=== PATIENT | male | born 1940 | race Caucasian/White ===

== ENCOUNTER 2023-06-30 16:37 | Inpatient (IN) | payer MEDICARE ==
[2023-06-30] VITALS (7 sets, daily range): BP systolic 125–155; BP diastolic 49–55; PULSE 77–80; TEMP 99.4–99.5
[~2023-06-30] VITALS: Ht 170.2 cm; Wt 60.0 kg
[2023-06-30 18:33] LABS: BASO % 0.6 % (0.0-2.0); EOS # 0.2 K/mm3 (0.0-0.7); GRAN % 59.3 % (42.2-75.2); LYMPH # 1.4 K/mm3 (1.2-3.4); LYMPH % 28.7 % (20.0-51.0); MEAN CELL VOLUME 91 fl (80.0-100.0); MEAN CORPUSCULAR HGB CONC 31 g/dl (33.0-37.0); MEAN PLATELET VOLUME 11.9 fl (7.4-10.4); MONO # 0.4 K/mm3 (0.1-0.6); MONO % 8.2 % (1.7-9.3); PLATELET COUNT 164 K/mm3 (130-400); RED BLOOD COUNT 2.22 M/mm3 (4.20-5.60); REDCELL DISTRIBUTION WIDTH-CV 14.1 % (11.5-14.5)
[2023-06-30 18:34] LABS: HEMATOCRIT 20.2 % (42.0-52.0); HEMOGLOBIN 6.2 g/dl (13.5-18.0); MEAN CORPUSCULAR HEMOGLOBIN 28 pg (27-31)
[2023-06-30 18:43] LABS: ALBUMIN 2.9 g/dL (3.4-4.8); BILIRUBIN,TOTAL 0.3 mg/dL (0.2-1.2); CALCIUM 8.7 mg/dL (8.4-10.2); CREATININE, serum 1.26 mg/dL (0.72-1.25); POTASSIUM 3.7 mEq/L (3.5-4.5); TOTAL PROTEIN 6.2 g/dl (6.2-8.1)
[2023-06-30] MEDS ORDERED: Ondansetron 4 MG/2 ML VIAL IV PRN (19:45)
[2023-06-30] MEDS ORDERED: Acetaminophen 325 MG TAB PO PRN (19:45)
[2023-06-30] MEDS ORDERED: Morphine 4 MG/ML VIAL IV ONE (20:00)
[2023-06-30] MEDS ORDERED: LORazepam 1 MG TAB PO PRN (20:00)
[2023-06-30] MEDS ORDERED: ATIVAN 1MG T1 MG/TAB PO (20:08)
[2023-06-30] MEDS ORDERED: ZOCOR 20MG20 MG PO (20:09)
[2023-06-30] MEDS ORDERED: PROTONIX 40MG T40 MG PO (20:09)
[2023-06-30] MEDS ORDERED: PLAVIX 75MG TAB75 MG PO (20:10)
[2023-06-30] MEDS ORDERED: LOPRESSOR 225 MG/TAB PO (20:11)
--- NOTE | 2023-06-30 20:30 | NUR ---
PATIENT ADMITTED TO ROOM 306 FROM ED. VITAL SIGNS ARE 130/49 BP, 78 PULSE, 96% RA, 99.5 TEMP. MED REC IS INCOMPLETE PATIENT RELIES ON FOR MEDICATION ADMINISTERATION. TO RETURN IN THE MORNING. WILL ADVISE DAYSHIFT. ORIENTED TO ROOM, CALL LIGHT WITHIN REACH. PRBC TRANFUSION ORDERS IN PLACE.
[2023-06-30] MEDS ORDERED: Iohexol 300 - 100 ML VIAL IV ONE (20:44)
[2023-06-30] MEDS ORDERED: NS 100 ML IV SCH (20:44)
[2023-06-30] MEDS ORDERED: Pantoprazole 40 MG in NS 10 ML IV SCH (21:00)
[2023-06-30 23:00] LABS: PH 5.5 (5.0-8.5); URINE APPEARANCE Clear (CLEAR/HAZY); URINE BLOOD 1+ (NEGATIVE); URINE COLOR YELLOW (YELLOW); URINE GLUCOSE NEGATIVE (NEGATIVE); URINE KETONE NEGATIVE (NEGATIVE); URINE NITRATE NEGATIVE (NEGATIVE); URINE PROTEIN(semi-quant) NEGATIVE (NEGATIVE); URINE UROBILINOGEN 0.2 E.U/dL (0.2-1.0)
[2023-06-30 23:07] LABS: COLLECTION METHOD CLEAN CATCH
[2023-07-01] VITALS (22 sets, daily range): BP systolic 135–161; BP diastolic 59–75; PULSE 56–101; TEMP 97.7–99.5
--- NOTE | 2023-07-01 04:10 | NUR ---
PATIENT TOLERATED TRANSFUSION OF 2UNITS PRBC WELL. STATES, "I AM FEELING MUCH BETTER.". STATES NO NEEDS AT THIS TIME. CALL LIGHT WITHIN REACH.
[2023-07-01 06:37] LABS: MEAN CELL VOLUME 87 fl (80.0-100.0); MEAN CORPUSCULAR HGB CONC 33 g/dl (33.0-37.0); MEAN PLATELET VOLUME 11.9 fl (7.4-10.4); PLATELET COUNT 139 K/mm3 (130-400); RED BLOOD COUNT 2.73 M/mm3 (4.20-5.60)
[2023-07-01 06:39] LABS: HEMATOCRIT 23.8 % (42.0-52.0); HEMOGLOBIN 7.9 g/dl (13.5-18.0); MEAN CORPUSCULAR HEMOGLOBIN 29 pg (27-31)
[2023-07-01 06:59] LABS: CALCIUM 8.3 mg/dL (8.4-10.2); CREATININE, serum 1.15 mg/dL (0.72-1.25); MAGNESIUM 1.8 mg/dL (1.6-2.6); POTASSIUM 3.8 mEq/L (3.5-4.5)
--- NOTE | 2023-07-01 07:30 | NUR ---
Pt doing well this morning during bedside shift report. Reports he feels much better than when he came in. I did assist pt with ordering his breakfast. No complaints of pain at this time. Gave him fresh ice water, no other needs or complaints. Call light within reach
--- NOTE | 2023-07-01 10:31 | NUR ---
pt continues to do well. He has been up walking with therapy. Reports he overall feels better, but is still a little dizzy when he gets up. Ate all of his breakfast with no complaints, no complaints of pain. at bedside, will continue to monitor
--- NOTE | 2023-07-01 10:59 | NUR ---
D: Initial visit: [employer]ant stopped by room on rounds. A: Pt was resting and content with his by his side. Pt has no needs right now. Both apprecaited the visit. P: It [employer] Consultant informed pt that if he needed anything from the home housekeeper area to let his nurse know. [employer]ant will follow up as needed.
--- NOTE | 2023-07-01 13:44 | NUR ---
floor worker met with pt and his , Corrina [phone] to discuss discharge planning. Pt reports he lives with his in [place]. He sees Dr. Stallings for PCP needs and obtains medications from [facility] with no difficulties. He reports to be independent with ADLS and uses no DME. He does not have a DPOA-HC and declines one. SW notes patient has been independent in room per notes. Discharge Plan: home
--- NOTE | 2023-07-01 13:45 | NUR ---
Pt laying in bed. at bedside. Pt is A&Ox4. VSS. S1S2, on tele. Clear lung sounds. ABD is rounded, firm, non-tender with audible bowel sounds. Pt is scheduled for a paracentesis later today for ascites. Palpable pulses and normal strength in all extremities. Call light in reach. No further needs at this time.
--- NOTE | 2023-07-01 15:00 | NUR ---
Received report from Mayela Olivarez RN. Pt laying in bed. No further needs at this time. Call light in reach.
[2023-07-01 15:36] LABS: INR 1.1 (0.8-3.0)
--- NOTE | 2023-07-01 20:30 | NUR ---
UPON SHIFT ASSESSMENT, SHANIQUA WAS IN BED EATING DINNER TRAY, HE IS AXO X4 AND CHEERFUL. HE C/O OF 4/10 ABDOMINAL PAIN. BOWEL SOUNDS PRESENT IN ALL QUADRANTS. VS ARE WNL AND TELE IS NS. HBG IMPROVRD FROM 6.2-7.9. PARACENTISIS SCHEDULED FOR TODAY NEVER OCCURED, TRIED TO CALL ULTRASOUND-NO ANSWER-STAFF GONE FOR DAY. WILL CONTACT OR PASS ON TO DAY SHIFT NEED FOR ALERTING ULTRASOUND OF ORDERED PROCEDURE. CALL LIGHT WITHIN REACH.
[2023-07-02] VITALS (7 sets, daily range): BP systolic 111–150; BP diastolic 60–76; PULSE 81–97; TEMP 97.5–98.4
--- NOTE | 2023-07-02 07:42 | NUR ---
sitting up in bed eating breakfast, bedside shift report received from Mony RN, radiology here to take patient for paracentesis
--- NOTE | 2023-07-02 09:00 | NUR ---
is back in his room from paracentesis, has bandaid to lower left side where he states the paracentesis was completed, the bandaid is CD&I and he denies any pain, full assessment completed, see interventions for further info, denies pain or needs at this time
[2023-07-02] MEDS ORDERED: Metoprolol Tartrate 25 MG TAB PO SCH (09:22)
--- NOTE | 2023-07-02 09:55 | NUR ---
in bed and appears to be sleeping, eyes closed, resp quiet and easy
[2023-07-02] MEDS ORDERED: Simvastatin 20 MG **** subs to Atorvastatin 10 MG PO SCH (10:00)
[2023-07-02 10:19] LABS: PERITONEAL -POLYMORPHONUCLEAR 2.5 % (0-25)
--- NOTE | 2023-07-02 10:42 | NUR ---
continues to appear to sleep
--- NOTE | 2023-07-02 11:15 | NUR ---
resting in bed, informed him he needs to be NPO, nothing to eat or drink, until after a CT scan of abdomen, verbalizes understanding
[2023-07-02 11:17] LABS: MEAN CELL VOLUME 90 fl (80.0-100.0); MEAN CORPUSCULAR HGB CONC 32 g/dl (33.0-37.0); PLATELET COUNT 144 K/mm3 (130-400); RED BLOOD COUNT 2.67 M/mm3 (4.20-5.60); REDCELL DISTRIBUTION WIDTH-CV 14.1 % (11.5-14.5)
[2023-07-02 11:21] LABS: HEMOGLOBIN 7.7 g/dl (13.5-18.0); MEAN CORPUSCULAR HEMOGLOBIN 29 pg (27-31)
[2023-07-02 11:22] LABS: HEMATOCRIT 23.9 % (42.0-52.0)
[2023-07-02 11:30] LABS: CALCIUM 8.4 mg/dL (8.4-10.2); CREATININE, serum 1.26 mg/dL (0.72-1.25); POTASSIUM 3.9 mEq/L (3.5-4.5)
--- NOTE | 2023-07-02 11:33 | NUR ---
notified by radiology staff the CT scan was cancelled, informed patient he could eat and drink,
--- NOTE | 2023-07-02 13:02 | NUR ---
sitting up in bed eating lunch, at bedside, asking about going home
--- NOTE | 2023-07-02 14:30 | NUR ---
informed patient and his we are working on discharge paper work, verbalizes understanding
--- NOTE | 2023-07-02 15:00 | NUR ---
discharge instructions given to patient and his , verbalizes understanding
--- NOTE | 2023-07-02 15:20 | NUR ---
discahrged per WC
[2023-07-02] MEDS ORDERED: Atorvastatin 10 MG TAB PO SCH (21:00)
== END 2023-07-02 15:20 | disposition home or self-care (01) | DRG 378 ==
LOC: COL.ER 16:37 → MEDICAL 19:38
PROVIDERS: Internal Medicine; Internal Medicine Gastroenterology; Nurse Practitioner; Physician Assistant; ADMIT Internal Medicine
PROC: 30233N1 Transfusion of Nonautologous Red Blood Cells into Peripheral Vein, Percutaneous Approach (ICD-10-PCS; 2023-06-30)
PROC: 0W9G3ZZ Drainage of Peritoneal Cavity, Percutaneous Approach (ICD-10-PCS; principal; 2023-07-01)
DX: K92.2 Gastrointestinal hemorrhage, unspecified (principal); R18.8 Other ascites; I10 Essential (primary) hypertension; E78.5 Hyperlipidemia, unspecified; F17.210 Nicotine dependence, cigarettes, uncomplicated; D64.9 Anemia, unspecified; G47.00 Insomnia, unspecified; K44.9 Diaphragmatic hernia without obstruction or gangrene; K29.30 Chronic superficial gastritis without bleeding; K64.1 Second degree hemorrhoids; K52.9 Noninfective gastroenteritis and colitis, unspecified; Z88.6 Allergy status to analgesic agent; Z79.02 Long term (current) use of antithrombotics/antiplatelets; Z88.5 Allergy status to narcotic agent; Z86.73 Personal history of transient ischemic attack (TIA), and cerebral infarction without residual deficits; Z79.899 Other long term (current) drug therapy; Z85.060 Personal history of malignant carcinoid tumor of small intestine; Z23 Encounter for immunization
CPT/HCPCS: C9113; J2270; P9016; Q9967

== ENCOUNTER 2023-07-20 09:39 | Emergency (ER) | payer MEDICARE ==
[~2023-07-20] VITALS: Ht 170.2 cm; Wt 63.6 kg
[~2023-07-20 09:39] MED LIST: ATIVAN 1MG T1 MG/TAB PO; LOPRESSOR 225 MG/TAB PO; PLAVIX 75MG TAB75 MG PO; PROTONIX 40MG T40 MG PO; ZOCOR 20MG20 MG PO
[2023-07-20 11:00] VITALS: TEMP 98.1
[2023-07-20 13:13] VITALS: BP 158/79; PULSE 71
[2023-07-20] MEDS ORDERED: Furosemide 40 MG/4 ML VIAL IV ONE (13:15)
[2023-07-20] MEDS ORDERED: Furosemide 40 MG TAB PO ONE (13:30)
== END 2023-07-20 13:13 | disposition home or self-care (01) ==
LOC: COL.ER 09:39
DX: R18.8 Other ascites (principal)

== ENCOUNTER → 2023-09-30 | Outpatient (CLI) | payer MEDICARE ==
[~2023-09-30] MED LIST changes: +Iohexol 300 - 100 ML VIAL IV ONE; +NS 100 ML IV SCH
== END ==
LOC: COL.RAD 07:19
DX: C7A.021 Malignant carcinoid tumor of the cecum (principal); K86.89 Other specified diseases of pancreas
CPT/HCPCS: Q9967

== ENCOUNTER → 2023-10-10 | Outpatient (CLI) | payer MEDICARE ==
[~2023-10-10] VITALS: Ht 170.2 cm; Wt 56.2 kg
[~2023-10-10] MED LIST changes: +ALDACTONE 25MG25 M1 PO; -Iohexol 300 - 100 ML VIAL IV ONE; -NS 100 ML IV SCH
[2023-10-10 08:26] VITALS: BP 133/68; PULSE 85; TEMP 97.3
[2023-10-10 10:00] VITALS: BP 114/78; PULSE 74
[2023-10-10 12:56] LABS: PERITONEAL -POLYMORPHONUCLEAR 7.9 % (0-25)
== END ==
LOC: COL.RAD 07:51
PROVIDERS: Internal Medicine Gastroenterology
DX: R18.8 Other ascites (principal); R11.2 Nausea with vomiting, unspecified; R10.9 Unspecified abdominal pain; R06.00 Dyspnea, unspecified; R14.0 Abdominal distension (gaseous)

== ENCOUNTER → 2023-12-09 | Outpatient (CLI) | payer MEDICARE ==
[~2023-12-09] VITALS: Ht 170.2 cm; Wt 57.5 kg
[~2023-12-09] MED LIST changes: +TYLENOL 500MG500 MG PO
[2023-12-09 11:44] VITALS: BP 118/73; PULSE 95; TEMP 97.7
--- NOTE | 2023-12-09 11:48 | NUR ---
PATIENT DECLINES GETTING AN IV AT THIS TIME IN CASE THERE IS NO NEED FOR IV ALBUMIN. PATIENT ALSO DECLINES TO HAVE ANOTHER COPY OF THE D/C INSTRUCTIONS HE NOW HAS SEVERAL COPIES OF THE INSTRUCTIONS AT HOME. PATIENT AND HIS ARE ABLE TO TEACH BACK. ALL NEEDS AT THIS TIME MET.
[2023-12-09 13:20] VITALS: BP 109/57; PULSE 90
--- NOTE | 2023-12-09 14:03 | NUR ---
Report hemal almanzar is not coming to [facility] today for infusion.
== END ==
LOC: COL.RAD 10:00
PROVIDERS: Internal Medicine Gastroenterology
DX: R18.8 Other ascites (principal)
CPT/HCPCS: 19804

== ENCOUNTER 2023-12-23 09:31 | Outpatient (CLI) | payer MEDICARE ==
[~2023-12-23] VITALS: Ht 170.2 cm; Wt 55.6 kg
[2023-12-23 09:45] VITALS: BP 109/71; PULSE 43; TEMP 97.7
[2023-12-23] MEDS ORDERED: Albumin (Human) 25 G/100 ML IVPB IV SCH (11:00)
[2023-12-23 11:02] VITALS: BP 108/79; PULSE 63
--- NOTE | 2023-12-23 11:23 | NUR ---
Pt resting in recliner. Multiple warm blankets provided. [place] juice and muffin given to pt on arrival to . at bedside. Call light in room. Pt does report some central abd discomfort following para procedure. Will continue to monitor.
--- NOTE | 2023-12-23 12:01 | NUR ---
Pt states abd discomfort improved after resting. Dressing remains clean, dry and intact. He is free of concerns at discharge. IV DC'd, site wrapped with coban. He is assisted to wheelchair. Assisted out by .
== END 2023-12-23 12:01 | disposition home or self-care (01) ==
LOC: COL.RAD 09:31
PROVIDERS: Internal Medicine Gastroenterology
DX: R18.8 Other ascites (principal)
CPT/HCPCS: P9047

== ENCOUNTER 2023-12-30 08:49 | Outpatient (CLI) | payer MEDICARE ==
[~2023-12-30] VITALS: Ht 170.2 cm; Wt 53.4 kg
[2023-12-30 09:11] VITALS: BP 103/70; PULSE 77; TEMP 97.1
--- NOTE | 2023-12-30 09:32 | NUR ---
IV STARTED SUCCESSFULLY BY ERIKA CORTES.
[2023-12-30 11:00] VITALS: BP 104/55; PULSE 74
[2023-12-30] MEDS ORDERED: ALBUMIN 12.5 GM/50 ML IV SCH (11:00)
[2023-12-30] MEDS ORDERED: Albumin (Human) 25 G/100 ML IVPB IV SCH (12:00)
--- NOTE | 2023-12-30 12:16 | NUR ---
PT TOLERATED INFUSION WELL. VS REMAINED WITHIN NORMAL LIMITS. PT TOLERATED PO FOOD AND FLUIDS DURING INFUSION. IV DISCONTINUED. PT FREE FROM ACUTE CONCERNS AND COMPLAINTS UPON DISCHARGE. PT ASSISTED TO MAIN LOBBY VIA WHEELCHAIR.
[2023-12-30] MEDS ORDERED: NS Flush 25 ML IV Bag IV SCH (12:30)
[2023-12-30 12:39] LABS: PERITONEAL -POLYMORPHONUCLEAR 8.9 % (0-25)
== END 2023-12-30 12:17 | disposition home or self-care (01) ==
LOC: COL.RAD 08:49
PROVIDERS: Internal Medicine
DX: R18.8 Other ascites (principal)
CPT/HCPCS: P9047